=== PATIENT | female | born 1990 | race Two or more races ===

== ENCOUNTER 2023-01-27 08:00 | Inpatient (IN) | payer BC ==
[2023-01-27 09:27] LABS: INR 1.07 (0.83-1.09); PROTHROMBIN TIME (PATIENT) 12.4 SEC (9.7-13.0)
[2023-01-27 09:30] LABS: ACTIVATED PTT 27.3 SECONDS (25.2-36.5)
[2023-01-27] MEDS ORDERED: ELECTROLYTE-148 SOLN 1,000 ML IV SCH (09:45)
[2023-01-27] MEDS ORDERED: OXYTOCIN 30 UNITS in 0.9% NS 30 UNIT/500 ML INFUS.BAG IVPB SCH (09:45)
[2023-01-27 09:59] LABS: POTASSIUM 3.8 mmol/L (3.5-5.1)
[2023-01-27 10:00] LABS: CALCIUM 8.6 mg/dL (8.5-10.1)
[2023-01-27 10:01] LABS: BLOOD UREA NITROGEN 10.8 mg/dL (7-18)
[2023-01-27 10:04] LABS: CREATININE 0.5 mg/dL (0.55-1.3)
[2023-01-27] MEDS ORDERED: OXYTOCIN 30 UNITS in 0.9% NS 30 UNIT/500 ML INFUS.BAG IVPB ONE (10:08)
[2023-01-27 10:37] VITALS: BMI 27.1
[2023-01-27] MEDS ORDERED: PROMETHAZINE HCL 25 MG/1 ML VIAL IVPUSH ONE (11:42)
[2023-01-27] MEDS ORDERED: PROMETHAZINE HCL 25 MG/1 ML VIAL IVPB ONE (11:42)
[2023-01-27] MEDS ORDERED: BUTORPHANOL TARTRATE 1 MG/ML VIAL IVPUSH ONE (11:42)
[2023-01-27] MEDS ORDERED: BUTORPHANOL TARTRATE 2 MG/ML VIAL ONE (11:45)
[2023-01-27 11:55] LABS: BASO % 0.7 % (0-2.0); EOS % 2.2 % (0-4.5); HEMATOCRIT 38.6 % (32.4-45.2); LYMPH % 26.6 % (8-40); MCH 31.7 pg (25.7-33.7); MCHC 33.7 g/dl (32.0-36.0); MEAN CELL VOLUME 94.1 fl (80-96); MEAN PLT VOLUME 10.6 fl (7.5-11.1); MONO % 7.3 % (3.8-10.2); NEUT % 63.2 % (42.8-82.8); PLATELET COUNT 127 10^3/uL (134-434); RDW 13.6 % (11.6-15.6); WHITE BLOOD COUNT 5.2 K/mm3 (4.0-10.0)
[2023-01-27] MEDS ORDERED: AMPICILLIN SODIUM 2 GM VIAL ONE (16:58)
[2023-01-27] MEDS ORDERED: AMPICILLIN - 2 GM in SODIUM CHLORIDE 100 ML IVPB ONE (16:59)
[2023-01-27] MEDS ORDERED: FENTANYL/BUPIVACAINE/NS/PF - PCEA - 50 ML DISP.SYRIN EP ONE (17:50)
[2023-01-27] MEDS ORDERED: BUPIVACAINE HCL/PF 0.25% (2.5MG/ML) 10 ML VIAL ONE (17:52)
[2023-01-27] MEDS ORDERED: LIDO 2%/EPI 1:200000 PRESRVFRE (20 ML SDVIAL) ONE ×2 (17:53→22:45)
[2023-01-27] MEDS ORDERED: NALOXONE HCL 0.4 MG/ML VIAL IVPUSH PRN (18:10)
[2023-01-27] MEDS ORDERED: FENTANYL/BUPIVACAINE/NS/PF - PCEA - 50 ML DISP.SYRIN EP SCH (18:15)
[2023-01-27] MEDS ORDERED: AMPICILLIN SODIUM 1 GM VIAL ONE (20:56)
[2023-01-27] MEDS: AMPICILLIN - 1 GM in SODIUM CHLORIDE 100 ML IVPB SCH (21:00)
[2023-01-27] MEDS ORDERED: CITRIC ACID/SODIUM CITRATE 30 ML UNIT-DOSE CUP PO ONE (22:22)
[2023-01-27] MEDS ORDERED: FENTANYL CITRATE/PF 50 MCG/ML VIAL ONE (22:44)
[2023-01-27] MEDS ORDERED: OXYTOCIN 20 UNITS in 0.9% NS 20 UNIT/1,000 ML INFUS.BAG IV ONE (22:45)
[2023-01-27] MEDS ORDERED: morphine SULFATE (PF) 1 MG/2 ML SYRINGE ONE (23:13)
[2023-01-28 00:13] LABS: CORD BASE EXCESS -3.8 mmol/L (0-2); CORD HCO3 23.6 mmHg (20-29); CORD PCO2 50.6 mmHg (30-78); CORD pH 7.286 (7.14-7.44)
[2023-01-28] MEDS: OXYTOCIN 20 UNITS in 0.9% NS 20 UNIT/1,000 ML INFUS.BAG IV SCH ×2 (00:30→04:47)
[2023-01-28] MEDS ORDERED: OXYTOCIN 20 UNITS in 0.9% NS 20 UNIT/1,000 ML INFUS.BAG IV ONE (00:31)
[2023-01-28 01:02] LABS: CORD HCO3 25.1 mmHg (20-29); CORD pH 7.198 (7.14-7.44)
[2023-01-28] MEDS ORDERED: ACETAMINOPHEN 325 MG TABLET (FP) PO PRN (01:07)
[2023-01-28] MEDS ORDERED: METHYLERGONOVINE MALEATE 0.2 MG/1 ML AMP IM PRN (01:07)
[2023-01-28] MEDS: AMPICILLIN - 1 GM in SODIUM CHLORIDE 100 ML IVPB SCH (01:14)
[2023-01-28] MEDS ORDERED: oxyCODONE HCL 5 MG TABLET PO PRN ×2 (13:07)
[2023-01-28] MEDS: IBUPROFEN 600 MG TABLET (FP) PO PRN ×2 (14:38→22:26)
[2023-01-28] MEDS: SIMETHICONE 80 MG TAB.CHEW (FP) PO PRN ×2 (14:38→22:27)
[2023-01-29] MEDS ORDERED: BISACODYL 10 MG SUPP.RECT RC PRN (01:07)
[2023-01-29 08:36] LABS: BASO % 0.7 % (0-2.0); EOS % 1.2 % (0-4.5); HEMATOCRIT 32.8 % (32.4-45.2); HEMOGLOBIN 11.1 GM/dL (10.7-15.3); LYMPH % 12.4 % (8-40); MCH 31.8 pg (25.7-33.7); MCHC 33.9 g/dl (32.0-36.0); MEAN CELL VOLUME 93.7 fl (80-96); MEAN PLT VOLUME 9.9 fl (7.5-11.1); MONO % 5.3 % (3.8-10.2); NEUT % 80.4 % (42.8-82.8); PLATELET COUNT 116 10^3/uL (134-434); RDW 13.7 % (11.6-15.6); WHITE BLOOD COUNT 10.4 K/mm3 (4.0-10.0)
[2023-01-29] MEDS: SIMETHICONE 80 MG TAB.CHEW (FP) PO PRN ×2 (08:56→17:54)
[2023-01-29] MEDS: IBUPROFEN 600 MG TABLET (FP) PO PRN ×2 (08:56→17:56)
[2023-01-29 09:14] VITALS: RESP 18
[2023-01-29 22:33] VITALS: PULSE 70
[2023-01-30] MEDS: IBUPROFEN 600 MG TABLET (FP) PO PRN ×2 (01:38→09:27)
[2023-01-30] MEDS: SIMETHICONE 80 MG TAB.CHEW (FP) PO PRN ×2 (01:38→09:27)
[2023-01-30 09:39] VITALS: BP 108/61; TEMP 98.1
== END 2023-01-30 11:35 | disposition home or self-care (01) | DRG 788 ==
LOC: EDBD 08:00 → JLDR 08:00 → J3W 01-28 01:30
PROVIDERS: ADMIT Obstetrics & Gynecology; ATTEND Obstetrics & Gynecology
PROC: 10D00Z1 Extraction of Products of Conception, Low, Open Approach (ICD-10-PCS; principal; 2023-01-27)
PROC: 10H07YZ Insertion of Other Device into Products of Conception, Via Natural or Artificial Opening (ICD-10-PCS; 2023-01-27)
DX: O62.0 Primary inadequate contractions (principal); O48.0 Post-term pregnancy; Z3A.40 40 weeks gestation of pregnancy; O99.820 Streptococcus B carrier state complicating pregnancy; Z37.0 Single live birth
CPT/HCPCS: 36415; 36600; 80048; 82803; 85025; 85610; 85730; 86780; 86850; 86900; 86901; 88307-TC; C9803-CS; U0003; U0005